=== PATIENT | female | born 1975 | race Caucasian/White ===

== ENCOUNTER 2016-06-27 13:43 | Emergency (ER) | payer BC ==
[2016-06-27 15:14] VITALS: BP 122/62
[2016-06-27] MEDS ORDERED: Ibuprofen TAB* 600 MG PO ONE (15:39)
--- NOTE | 2016-06-27 15:39 | UC ---
UC General HPI - HPI Summary HPI Summary: Patient slipped on stone steps, landed on bottom, heard a crunch, pain with ambulation and sitting. small amount of swelling around the cleft noted. - History of Current Complaint Chief Complaint: UCBackPain Stated Complaint: BACK AND BOTTOM INJURY Time Seen by Provider: 06/27/16 15:20 Hx Obtained From: Patient Onset/Duration: Sudden Onset, Lasting Hours Timing: Constant Onset Severity: Severe Current Severity: Moderate Pain Intensity: 6 Pain Location at: buttocks - Allergy/Home Medications Allergies/Adverse Reactions: Allergies Allergy/AdvReac Type Severity Reaction Status Date / Time No Known Allergies Allergy Verified 03/10/16 17:03 Home Medications: Home Medications NK [No Home Medications Reported] 06/27/16 [History Confirmed 06/27/16] PMH/Surg Hx/FS Hx/Imm Hx Previously Healthy: Yes Endocrine History Of: Denies: Diabetes, Thyroid Disease Cardiovascular History Of: Reports: Cardiac Disorders - SVT, Hypertension - while Respiratory History Of: Reports: Asthma - as pre-teen Denies: COPD GI/ History Of: Denies: Ulcer Cancer History Of: Denies: Breast Cancer - Surgical History Surgical History: Yes Surgery Procedure, Year, and Place: X2. TUBAL LIGATION - Family History Known Family History: Positive: Hypertension, Respiratory Disease - Social History Alcohol Use: Occasionally Alcohol Amount: 3 DRINKS/DAY Substance Use Type: None Smoking Status (MU): Light Every Day Tobacco Smoker Have You Smoked in the Last Year: No When Did the Patient Quit Smoking/Using Tobacco: 2007 - Immunization History Most Recent Influenza Vaccination: 2014 Most Recent Tetanus Shot: UTD Review of Systems Constitutional: Negative Skin: Negative Eyes: Negative ENT: Negative Respiratory: Negative Cardiovascular: Negative Gastrointestinal: Negative Genitourinary: Negative Motor: Negative Neurovascular: Negative Musculoskeletal: Arthralgia, Edema, Myalgia Neurological: Negative Psychological: Negative All Other Systems Reviewed And Are Negative: Yes Physical Exam Triage Information Reviewed: Yes Appearance: Well-Appearing, Well-Nourished, Pain Distress Vital Signs: Initial Vital Signs Temp 98.1 F 06/27/16 15:11 Pulse 57 06/27/16 15:11 Resp 18 06/27/16 15:11 BP 122/62 06/27/16 15:11 Pulse Ox 100 06/27/16 15:11 Vital Signs Reviewed: Yes Eye Exam: Normal Eyes: Positive: Conjunctiva Clear ENT Exam: Normal ENT: Positive: Normal ENT inspection, Hearing grossly normal, Pharynx normal, TMs normal Dental Exam: Normal Neck exam: Normal Neck: Positive: Supple, Nontender, No Lymphadenopathy Respiratory Exam: Normal Respiratory: Positive: Chest non-tender, Lungs clear, Normal breath sounds Cardiovascular Exam: Normal Cardiovascular: Positive: RRR, No Murmur, Pulses Normal Abdominal Exam: Normal Abdomen Description: Positive: Nontender, No Organomegaly, Soft Bowel Sounds: Positive: Present Musculoskeletal Exam: Normal Musculoskeletal: Positive: ROM Limited @ - in hip flexion and back flexion, Edema @ - mild edema at minda cleft Neurological Exam: Normal Neurological: Positive: Alert, Muscle Tone Normal Psychological Exam: Normal Skin Exam: Normal Course/Dx - Course Course Of Treatment: hx obtained, exam performed, ibuprofen given, xray obtained - Differential Dx - Multi-Symptom Provider Diagnoses: contusion of sacrum Discharge - Discharge Plan Condition: Stable Disposition: HOME Patient Education Materials: Contusion in Adults (ED) Additional Instructions: NO evidence of fracture on xray today, if symptoms persist, i recommend follow up. continue with ice, Motrin as needed.
--- NOTE | 2016-06-27 15:54 | RAD ---
INDICATION: Sacrococcygeal injury. COMPARISON: There are no prior studies available for comparison. TECHNIQUE: 3 views of the sacrococcygeal spine were obtained. FINDINGS: The vertebra are in normal alignment. No fracture is seen. IMPRESSION: NO EVIDENCE OF FRACTURE IF THE PATIENT'S SYMPTOMS PERSIST RECOMMEND FOLLOW UP IMAGING.
== END 2016-06-27 16:43 | disposition home or self-care (01) ==
LOC: UCEAST 13:43
DX: S30.0XXA Contusion of lower back and pelvis, initial encounter (principal); W01.0XXA Fall on same level from slipping, tripping and stumbling without subsequent striking against object, initial encounter; Y93.9 Activity, unspecified; Y92.9 Unspecified place or not applicable; F17.210 Nicotine dependence, cigarettes, uncomplicated
CPT/HCPCS: 72220; 99211; A9270-GY; G0463

== ENCOUNTER 2016-10-01 12:17 | Emergency (ER) | payer BC ==
[2016-10-01 12:59] VITALS: BP 133/61
--- NOTE | 2016-10-01 13:58 | UC ---
Michelle Sarmiento Matthew, [facility] on 10/01/16 at 1316 . Throat Pain/Nasal Wood HPI - HPI Summary HPI Summary: A 41 y/o female presents to with sore throat since yesterday, which worsened today. Associated symptoms include headache - since 3 days ago, chills, body aches, hoarse voice, productive cough, and fever. The patient denies congestion , nausea, vomiting, diarrhea, and ear ache. She also states that she's had tonsil stones over the past week and mild nausea 3 days ago, which has resolved. She has a Hx of SVT, but hasn't had an episode in 3 years. FHx of CAD , ID, and fibromyalgia. She has positive fibromyalgia markers. MD Note: 12/28 sore throat. Smokes. 3 drinks per day, SVT. Visit Hx non- contributory to current complaint. Nurse's Note: headache sore throat started sunday - History of Current Complaint Chief Complaint: UCGeneralIllness Stated Complaint: SORE THROAT COUGH Time Seen by Provider: 10/01/16 13:01 Hx Obtained From: Patient Hx Last Menstrual Period: 09/18/16 ?: No Onset/Duration: Gradual Onset, Lasting Days, Still Present Severity: Mild Pain Intensity: 8 Pain Scale Used: 0-10 Numeric Cough: Productive Associated Signs & Symptoms: Positive: Hoarseness, Sinus Discomfort, Fever. Negative: Vomiting - Allergies/Home Medications Allergies/Adverse Reactions: Allergies Allergy/AdvReac Type Severity Reaction Status Date / Time No Known Allergies Allergy Verified 03/10/16 17:03 PMH/Surg Hx/FS Hx/Imm Hx Endocrine History Of: Denies: Diabetes, Thyroid Disease Cardiovascular History Of: Reports: Cardiac Disorders - SVT, Hypertension - while Respiratory History Of: Reports: Asthma - as pre-teen Denies: COPD GI/ History Of: Denies: Ulcer Cancer History Of: Denies: Breast Cancer - Surgical History Surgical History: Yes Surgery Procedure, Year, and Place: X2. TUBAL LIGATION - Family History Known Family History: Positive: Hypertension, Respiratory Disease - Social History Occupation: Employed Full-time - nurse Alcohol Use: Occasionally Alcohol Amount: 3 DRINKS/DAY Substance Use Type: None Smoking Status (MU): Light Every Day Tobacco Smoker Have You Smoked in the Last Year: No When Did the Patient Quit Smoking/Using Tobacco: 2007 - Immunization History Most Recent Influenza Vaccination: 2014 Most Recent Tetanus Shot: UTD Review of Systems Constitutional: Fever, Chills Skin: Negative Eyes: Negative ENT: Sore Throat, Other - hoarse voice; sinus discomfort Respiratory: Cough - productive Cardiovascular: Negative Gastrointestinal: Negative, Other - nausea - since resolved Genitourinary: Negative Motor: Negative Neurovascular: Negative Musculoskeletal: Myalgia - body aches Neurological: Headache Psychological: Negative All Other Systems Reviewed And Are Negative: Yes Physical Exam Triage Information Reviewed: Yes Appearance: No Pain Distress, Well-Nourished Vital Signs: Initial Vital Signs Temp 98 F 10/01/16 12:54 Pulse 69 10/01/16 12:54 Resp 16 10/01/16 12:54 BP 133/61 10/01/16 12:54 Pulse Ox 100 10/01/16 12:54 Vital Signs Reviewed: Yes Eyes: Positive: Conjunctiva Clear ENT: Positive: TMs normal, Other: - MILD DISCOMFORT ON EXAMINATION OF THE ANTERIOR CERVICAL GLANDS; PHARYNX SHOWS POSTERIOR LYMPH PATCHES; no purulence or enlargement of the tonsils noted; LEFT MAXILLARY SINUS DISCOMFORT ON PALPATION Neck: Positive: Supple, Nontender Respiratory: Positive: Chest non-tender, Lungs clear, Normal breath sounds Cardiovascular: Positive: RRR, No Murmur Abdomen Description: Positive: Nontender, No Organomegaly, Soft Bowel Sounds: Positive: Present Musculoskeletal: Positive: Strength Intact - RAMOS Neurological: Positive: Alert Psychological: Positive: Age Appropriate Behavior Skin Exam: Normal Throat Pain/Nasal Course/Dx - Course Assessment/Plan: Patient with a sore throat and sinus discomfort. Her rapid strep is negative and her influenza is negative. It is most likely she has a viral sinus infection with congestion. We discussed the situation and decided not to start Abx at this time and treat her symptomatically. DOCUMENTATION NOTE : Medications have been included in the original chart and reviewed. Patient is Urgent/Emergent. BP elevated due to current condition w/o HTN in PMH. - Differential Dx/Diagnosis Differential Diagnosis/HQI/PQRI: Influenza, Peritonsillar Abscess, Pharyngitis, URI, Other - STREP Provider Diagnoses: URI Discharge - Discharge Plan Condition: Stable Disposition: HOME Patient Education Materials: Pharyngitis (ED) Referrals: Alvin,Huong, MYCOLOGY TEACHER [Primary Care Provider] - Additional Instructions: WE DISCUSSED: 1. Your rapid strep was negative. 2. You have sinus congestion on the left. 3. Your influenza was negative. Most likely you have a viral illness. Other information: COUGH, CONGESTION of CHEST, SINUSES OR EARS: The most important goal is to liquefy all the phlegm and get it out of your head and chest. Any illness causing cough, congestion, sore throat or sinus discomfort can be helped by doing the following: STAND UNDER SHOWER STREAM TO LOOSEN SECRETIONS. STAY AWAY FROM ANY SMOKE OR IRRITANTS. WHAT ELSE CAN HELP RELIEVE YOUR SYMPTOMS: GENERAL TYPES OF MEDICINE THAT MAY HELP DECONGESTANTS: helps relieve stuffiness and clears sinuses. Pseudoephedrine ( Sudafed or generic) is effective but you need to ask the pharmacist for it because it may be kept behind the counter. ANTIHISTAMINES: are NOT helpful in many colds and flus because they can worsen sore throat, dry eyes and mouth and cause drowsiness. Examples are diphenhydramine, doxylamine and chlorpheniramine. They can help dry you out if you are having profuse, clear drainage from the nose. EXPECTORANTS: helps thin mucous in the nose and chest, making it easier to clear the fluid out. Expectorants are in most combination cough/cold remedies and should be taken with plenty of water. Guaifenesin is the most common expectorant and it comes in pill or liquid form. Mucinex is an extended release form of guaifenesin. COUGH SUPPRESANT: reduces the body's cough reflex. Dextromethorphan is in over the counter products, but sometimes narcotics such as codeine or hydrocodone are used to suppress cough. SPECIFIC MEDICATIONS: The most important goal is to liquefy all the phlegm and get it out of your head and chest: The following medicines (in prescription form or you can buy them without prescription) may help: To help with cough: DEXTROMETHORPHAN (Vicks, Robitussin, Nyquil and other brands) To help break up phlegm: GUAIFENESIN (Mucinex, Robitussin, other brands) To help clear congestion: PSEUDOEPHEDRINE (Sudafed, Dimetapp, other brands) TRY TO CLEAR NOSE: AFRIN NASAL SPRAY: 2-3 SPRAYS PER NOSTRIL, TWICE A DAY FOR TWO DAYS ONLY. USEFUL WAYS TO FEEL BETTER WITHOUT MEDICATIONS: STAND UNDER SHOWER STREAM TO LOOSEN SECRETIONS. USE A VAPORIZOR. STAY AWAY FROM ANY SMOKE OR IRRITANTS. USE SALINE NASAL SPRAY TO KEEP FLOW OF MUCOUS FROM NOSTRILS AND SINUSES. CONSIDER USING NETI POT TO HELP WITH ALLERGIES AND CONGESTION IN THE NOSE. USE THIS THREE TIMES A WEEK. YOU CAN GET THIS AT [employer] IN [place] OR VARIOUS DRUGSTORES. DRINK LOTS OF WARM FLUIDS USEFUL HOME REMEDIES: WARM WATER GARGLES, WITH TSP OF SALT PER 8 OUNCES OF WATER, GARGLE FOR A FEW SECONDS AND SPIT OUT; GARGLE AND SPIT OUT; EVERY THREE HOURS. AND/OR: WARM WATER OR TEA, HONEY AND LEMON; 2-3 CUPS A DAY. FOR SORE THROAT: KEEP THROAT MOIST WITH LOZENGES; TEA AND HONEY. USE WARM WATER GARGLES 3-4 TIMES A DAY. FOLLOW UP: RE-CHECK IN 1O DAYS, NEEDED, IF YOU ARE NOT IMPROVING. RETURN HERE OR SEE YOUR PHYSICIAN. RE-CHECK SOONER IF INCREASED PAIN OR TEMPERATURE. The documentation as recorded by the Michelle fabian Matthew accurately reflects the service I personally performed and the decisions made by , Saran Louie MD.
== END 2016-10-01 14:02 | disposition home or self-care (01) ==
LOC: UCEAST 12:17
DX: J06.9 Acute upper respiratory infection, unspecified (principal); F17.210 Nicotine dependence, cigarettes, uncomplicated; Z86.79 Personal history of other diseases of the circulatory system; Z72.89 Other problems related to lifestyle
CPT/HCPCS: 36415; 87389; 87502; 87651; 99211; G0463; G0475

== ENCOUNTER 2017-11-30 14:13 | Emergency (ER) | payer BC ==
[2017-11-30 14:34] VITALS: BP 143/75
[2017-11-30] MEDS ORDERED: Tetan/Diph/Pertus SYR(Tdap)* 0.5 ML SYR(BOOSTRIX) use SYR IM ONE (14:34)
--- NOTE | 2017-11-30 14:39 | UC ---
HPI Wound/Suture Re-check - HPI Summary HPI Summary: This pt is a 42 y/o female presenting to [facility] c/o wound on left ankle for the past 5 days. Pt reports [place] she [place] a wound on her left ankle. She presents today with worsening wound on her left ankle. She denies any other injuries. Denies fever, chills, discharge. Her tetanus vaccine is not UTD. - History Of Current Complaint Stated Complaint: WOUND ON ANKLE Time Seen by Provider: 11/30/17 14:25 Hx Obtained From: Patient Hx Last Menstrual Period: 11/19/17 Onset/Duration: Gradual Onset, Lasting Days, Still Present Severity: Moderate Pain Intensity: 5 - left ankle Pain Scale Used: 0-10 Numeric - Allergies/Home Medications Allergies/Adverse Reactions: Allergies Allergy/AdvReac Type Severity Reaction Status Date / Time No Known Allergies Allergy Verified 11/30/17 14:35 PMH/Surg Hx/FS Hx/Imm Hx Other Endocrine History: DENIES: diabetes Cardiovascular History: Hypertension Respiratory History: Asthma - Surgical History Surgical History: Yes Surgery Procedure, Year, and Place: X2. TUBAL LIGATION - Family History Known Family History: Positive: Hypertension, Respiratory Disease - Social History Alcohol Use: Occasionally Alcohol Amount: 3 DRINKS/DAY Substance Use Type: None Smoking Status (MU): Light Every Day Tobacco Smoker Have You Smoked in the Last Year: No When Did the Patient Quit Smoking/Using Tobacco: 2007 - Immunization History Most Recent Influenza Vaccination: 2014 Most Recent Tetanus Shot: unknown Review of Systems Constitutional: Negative Skin: Other - wound on left ankle Eyes: Negative ENT: Negative Respiratory: Negative Cardiovascular: Negative Gastrointestinal: Negative Genitourinary: Negative Motor: Negative Neurovascular: Negative Musculoskeletal: Negative Neurological: Negative Psychological: Negative All Other Systems Reviewed And Are Negative: Yes Physical Exam - Summary Physical Exam Summary: VITAL SIGNS: Reviewed. GENERAL: Patient is a well-developed and nourished female who is lying comfortable in the stretcher. Patient is not in any acute respiratory distress. HEAD AND FACE: Normocephalic EYES: PERRLA, EOMI x 2. EARS: Hearing grossly intact. MOUTH: Oropharynx within normal limits. NECK: Supple, trachea is midline, no adenopathy, no JVD, no carotid bruit. CHEST: Symmetric, no tenderness at palpation LUNGS: Clear to auscultation bilaterally. No wheezing or crackles. CVS: Regular rate and rhythm, S1 and S2 present, no murmurs or gallops appreciated. ABDOMEN: Soft, non-tender. Bowel sounds are normal. No abdominal abnormal pulsations. EXTREMITIES: Full ROM in all major joints, no cyanosis or clubbing. LLE: wound on left anterior aspect of the ankle. NEURO: Alert and oriented x 3. No acute neurological deficits. Speech is normal and follows commands. SKIN: Dry and warm Triage Information Reviewed: Yes Vital Signs: Initial Vital Signs Temp 99.0 F 11/30/17 14:25 Pulse 75 11/30/17 14:25 Resp 16 11/30/17 14:25 BP 143/75 11/30/17 14:25 Pulse Ox 100 11/30/17 14:25 Vital Signs Reviewed: Yes Course/Dx - Course Course Of Treatment: pt is a 42 y/o female presenting to [facility] c/o wound on left ankle for the past 5 days. Pt reports [place] she [place] a wound on her left ankle. She presents today with worsening wound on her left ankle. She denies any other injuries. Denies fever, chills, discharge. Her tetanus vaccine is not UTD. On exam pt has a wound on left anterior aspect of the ankle. In the UC course pt was given a tetanus boostrix. Pt will be discharged home with a prescription for Keflex for her wound infection. Pt was instructed to return to the urgent care or go to ER immediately if any of the symptoms return or worsens. Plan of care was discussed with the patient and pt understands and agrees. All questions were answered to patient satisfaction. There were no further complaints or concerns. Pt will be discharged to home with follow up from PCP. Pt is hemodynamically stable, alert and oriented x3. The patient was found to have increased blood pressure in UC. The patient will follow up with PCP for better control of BP. - Differential Dx - Laceration/Wound Provider Diagnoses: Wound infection Discharge - Sign-Out/Discharge Documenting (check all that apply): Patient Departure - Discharge - Discharge Plan Condition: Stable Disposition: HOME Prescriptions: Cephalexin CAP* [Keflex CAP*] 500 mg PO TID #30 cap Patient Education Materials: Wound Infection (ED) Referrals: Huong Esquivel NP [Primary Care Provider] - Additional Instructions: FOLLOW UP WITH YOUR PRIMARY CARE PROVIDER WITHIN ONE WEEK FOR HIGH BLOOD PRESSURE NOTED TODAY. RETURN TO URGENT CARE OR THE ED FOR ANY WORSENING OR NEW SYMPTOMS.
== END 2017-11-30 14:44 | disposition home or self-care (01) ==
LOC: UCEAST 14:13
DX: S91.002A Unspecified open wound, left ankle, initial encounter (principal); X58.XXXA Exposure to other specified factors, initial encounter; Y93.01 Activity, walking, marching and hiking; Y92.009 Unspecified place in unspecified non-institutional (private) residence as the place of occurrence of the external cause; Z23 Encounter for immunization; I10 Essential (primary) hypertension; J45.909 Unspecified asthma, uncomplicated; Z82.49 Family history of ischemic heart disease and other diseases of the circulatory system; Z83.6 Family history of other diseases of the respiratory system; Z87.891 Personal history of nicotine dependence
CPT/HCPCS: 90471; 90715; 99212; G0463

== ENCOUNTER 2018-02-08 17:21 | Emergency (ER) | payer BC ==
[2018-02-08 17:35] VITALS: BP 156/74
--- NOTE | 2018-02-08 17:54 | UC ---
Eye Complaint HPI - HPI Summary HPI Summary: This patient is a 42 year old F presenting to [facility] with a chief complaint of R corner eyelid pain and irritation since last couple of days. The patient rates the pain 8/10 in severity. Symptoms aggravated by nothing. Symptoms alleviated by nothing. Patient reports increased lacrimation. Patient denies fever and blurred vision. - History of Current Complaint Chief Complaint: UCEye Stated Complaint: EYE IRRITATION Hx Obtained From: Patient Hx Last Menstrual Period: 02/05/18 Onset/Duration: Sudden Onset, Lasting Days, Still Present Timing: Days Severity Initially: Severe Severity Currently: Severe Pain Intensity: 8 Pain Scale Used: 0-10 Numeric Location of Injury: Other - R corner eyelid Aggravating Factor(s): Nothing Alleviating Factor(s): Nothing - Allergies/Home Medications Allergies/Adverse Reactions: Allergies Allergy/AdvReac Type Severity Reaction Status Date / Time No Known Allergies Allergy Verified 02/08/18 17:35 PMH/Surg Hx/FS Hx/Imm Hx Endocrine History: Other Other Endocrine History: No DM Cardiovascular History: Cardiac Disease, Hypertension - Surgical History Surgical History: Yes Surgery Procedure, Year, and Place: X2. TUBAL LIGATION - Family History Known Family History: Positive: Hypertension, Respiratory Disease - Social History Alcohol Use: Occasionally Alcohol Amount: 3 DRINKS/DAY Substance Use Type: None Smoking Status (MU): Light Every Day Tobacco Smoker Have You Smoked in the Last Year: No When Did the Patient Quit Smoking/Using Tobacco: 2007 - Immunization History Most Recent Influenza Vaccination: 2015 Most Recent Tetanus Shot: unknown Review of Systems Constitutional: Other - denies fever Eyes: Other - R corner eyelid pain and irritation and increased lacrimation; denies blurred vision All Other Systems Reviewed And Are Negative: Yes Physical Exam - Summary Physical Exam Summary: VITAL SIGNS: Reviewed. GENERAL: Patient is a well-developed and nourished FEMALE who is lying comfortable in the stretcher. Patient is not in any acute respiratory distress. HEAD AND FACE: Normocephalic EYES: PERRLA, EOMI x 2. Stye in the R lower eyelid. EARS: Hearing grossly intact. MOUTH: Oropharynx within normal limits. NECK: Supple, trachea is midline, no adenopathy, no JVD, no carotid bruit. CHEST: Symmetric, no tenderness at palpation LUNGS: Clear to auscultation bilaterally. No wheezing or crackles. CVS: Regular rate and rhythm, S1 and S2 present, no murmurs or gallops appreciated. ABDOMEN: Soft, non-tender. Bowel sounds are normal. No abdominal abnormal pulsations. EXTREMITIES: Full ROM in all major joints, no edema, no cyanosis or clubbing. NEURO: Alert and oriented x 3. No acute neurological deficits. Speech is normal and follows commands. SKIN: Dry and warm Triage Information Reviewed: Yes Vital Signs: Initial Vital Signs Temp 98.2 F 02/08/18 17:28 Pulse 65 02/08/18 17:28 Resp 18 02/08/18 17:28 BP 156/74 02/08/18 17:28 Pulse Ox 100 02/08/18 17:28 Vital Signs Reviewed: Yes Eye Complaint Course/Dx - Course Course Of Treatment: Believe that the patient has a stye. Therefore she was recommended to use warm compresses and use erythromycin ointment. The patient understands and agrees. The patient will be discharged home with follow-up with primary care physician. She was recommended to return to the urgent care or go to the emergency room if she develops increasing pain, blurred vision, photophobia, any ulcers in the eye or any other complaint. He shouldn't is hemodynamically stable alert and oriented 3. - Differential Dx/Diagnosis Differential Diagnosis/HQI/PQRI: Other - stye Provider Diagnoses: stye Discharge - Sign-Out/Discharge Documenting (check all that apply): Patient Departure - discharge All imaging exams completed and their final reports reviewed: No Studies - Discharge Plan Condition: Stable Disposition: HOME Prescriptions: Erythromycin OPTH OINT* [Erythromycin 0.5% OPTH OINT*] 1 applic BOTH EYES TID # 1 tube Patient Education Materials: Stye (ED) Referrals: Huong Esquivel NP [Primary Care Provider] - Additional Instructions: Take medications as instructed and adhere to plan Take Acetaminophen or ibuprofen for pain or fever Increase your fluid intake Return to the or go to the emergency department if symptoms worsen Follow-up with primary care physician in next 2-3 days - Billing Disposition and Condition Condition: STABLE Disposition: Home - Attestation Statements Document Initiated by Scribe: Yes Documenting Scribe: David Corrigan Provider For Whom Scribe is Documenting (Include Credential): Fransisco Nelson MD Scribe Attestation: David Sarmiento, scribed for Fransisco Nelson MD on 02/08/18 at 1755. Scribe Documentation Reviewed: Yes Provider Attestation: The documentation as recorded by the scribe, David Corrigan accurately reflects the service I personally performed and the decisions made by me, Fransisco Nelson MD
== END 2018-02-08 17:55 | disposition home or self-care (01) ==
LOC: UCEAST 17:21
DX: H00.022 Hordeolum internum right lower eyelid (principal); I10 Essential (primary) hypertension; Z87.891 Personal history of nicotine dependence
CPT/HCPCS: 99212; G0463

== ENCOUNTER → 2018-11-09 11:33 | Emergency (ER) | payer BC ==
--- NOTE | 2018-11-09 11:59 | ED ---
Lower Extremity - HPI Summary HPI Summary: This patient is a 43 year old female presenting to [facility] with a chief complaint of RLE pain yesterday. Pt states she started experiencing a "deep" pain in her right thigh and some weakness after that. She said she experienced 10/10 pain for 2-3 minutes and then it resolved. Pt states pain feels like a deep bruise. She states she buckled her right knee a couple weeks ago and has pain there. She states she has some trouble walking up and down stairs but otherwise can ambulate. The patient denies back pain, numbness, and tingling. The patient reports a Hx of SVT. Sxs are mild in severity. - History of Current Complaint Chief Complaint: EDExtremityLower Stated Complaint: RIGHT LEG PAIN UPPER THIGH PER PT Time Seen by Provider: 11/09/18 11:47 Hx Obtained From: Patient Hx Last Menstrual Period: 02/05/18 Pain Intensity: 0 - Allergies/Home Medications Allergies/Adverse Reactions: Allergies Allergy/AdvReac Type Severity Reaction Status Date / Time morphine Allergy See Comment Verified 11/09/18 11:40 Home Medications: Home Medications Biotin/Keratin [Biotin Plus Keratin Tablet] 1 tab PO DAILY 11/09/18 [History Confirmed 11/09/18] PMH/Surg Hx/FS Hx/Imm Hx Previously Healthy: Yes Endocrine/Hematology History: Denies: Hx Diabetes, Hx Thyroid Disease Cardiovascular History: Reports: Hx Hypertension - while Comment Only: Other Cardiovascular Problems/Disorders - SVT Respiratory History: Reports: Hx Asthma - as pre-teen Denies: Hx Chronic Obstructive Pulmonary Disease (COPD) GI History: Denies: Hx Ulcer - Cancer History Hx Chemotherapy: No Hx Radiation Therapy: No - Surgical History Surgery Procedure, Year, and Place: X2. TUBAL LIGATION - Immunization History Date of Tetanus Vaccine: 2011 Date of Influenza Vaccine: fall 2012 Infectious Disease History: No Infectious Disease History: Denies: Hx Clostridium Difficile, Hx Hepatitis, Hx Human Immunodeficiency Virus (HIV), Hx of Known/Suspected MRSA, Hx Shingles, Hx Tuberculosis, Hx Known/ Suspected VRE, Hx Known/Suspected VRSA, History Other Infectious Disease, Traveled Outside the [place] in Last 30 Days - Family History Known Family History: Positive: Hypertension, Respiratory Disease - Social History Occupation: Employed Full-time Lives: With Family Alcohol Use: Occasionally Alcohol Amount: 3 DRINKS/DAY Substance Use Type: Reports: None Hx Tobacco Use: Yes Smoking Status (MU): Light Every Day Tobacco Smoker Have You Smoked in the Last Year: No Review of Systems Cardiovascular: Negative Negative: Chest Pain Respiratory: Negative Negative: Shortness Of Breath Positive: Other - RLE Pain, back pain Positive: Weakness - In RLE. Negative: Numbness, Syncope All Other Systems Reviewed And Are Negative: Yes Physical Exam Triage Information Reviewed: Yes Vital Signs On Initial Exam: Initial Vitals Temp Pulse Resp BP Pulse Ox 97.8 F 77 16 125/94 100 11/09/18 11:36 11/09/18 11:36 11/09/18 11:36 11/09/18 11:36 11/09/18 11:36 Vital Signs Reviewed: Yes Appearance: Positive: Well-Appearing - Patient is a pleasant 43 year old female in no pain distress. Skin: Positive: Warm, Dry Head/Face: Positive: Normal Head/Face Inspection Neck: Positive: Supple Musculoskeletal: Positive: Other - Palpable pedal pulse right. No calf edema or tenderness. Echymosis, superficial, abraision, and tenderness over right patella. Full ROM with minimal pain. No increase in laxity. Mild proximal right thigh tenderness. Neurological: Positive: Normal Psychiatric: Positive: Affect/Mood Appropriate Diagnostics - Vital Signs Vital Signs Temp Pulse Resp BP Pulse Ox 11/09/18 11:36 97.8 F 77 16 125/94 100 - Laboratory Lab Statement: Any lab studies that have been ordered have been reviewed, and results considered in the medical decision making process. - Radiology Right Knee XR Radiology Interpretation Completed By: Radiologist Summary of Radiographic Findings: Negative for joint effusion, fracture, or malalignment. Anterior soft tissue swelling. ED Provider has reviewed this report. - Ultrasound No standard instances Ultrasound Interpretation Completed By: Radiologist Summary of Ultrasound Findings: Venous Doppler Study: No evidence for Right Lower Extremity DVT. ED provider has reviewed this report. Lower Extremity Course/Dx - Diagnoses Differential Diagnosis/HQI/PQRI: Positive: Contusion, DVT, Sprain, Strain Provider Diagnoses: Leg strain, Knee sprain Discharge - Sign-Out/Discharge Documenting (check all that apply): Patient Departure Patient Received Moderate/Deep Sedation with Procedure: No - Discharge Plan Condition: Good Disposition: HOME Patient Education Materials: Knee Sprain (ED), Leg Sprain (ED) Referrals: Nils Arrington DO [Primary Care Provider] - Additional Instructions: Follow up with PCP if symptoms persist Ice and elevate intermittently Tylenol or Motrin for pain as directed Return to ER if symptoms change or worsen - Billing Disposition and Condition Condition: GOOD Disposition: Home - Attestation Statements Document Initiated by Scribe: Yes Documenting Scribe: Joesph Doll Provider For Whom Scribe is Documenting (Include Credential): GRACIE Peraza Scribe Attestation: IJoesph scribed for GRACIE Peraza on 11/10/18 at 1733. Scribe Documentation Reviewed: Yes Provider Attestation: The documentation as recorded by the Joesph fabian accurately reflects the service I personally performed and the decisions made by Ziyad espitia PAC Status of Scribe Document: Viewed
[2018-11-09 15:16] VITALS: BP 0/0
== END | disposition home or self-care (01) ==
LOC: ED 11:33
DX: S86.911A Strain of unspecified muscle(s) and tendon(s) at lower leg level, right leg, initial encounter (principal); S83.91XA Sprain of unspecified site of right knee, initial encounter; F17.210 Nicotine dependence, cigarettes, uncomplicated; X58.XXXA Exposure to other specified factors, initial encounter
CPT/HCPCS: 36415; 85379; 99282

== ENCOUNTER 2019-05-15 13:02 | Emergency (ER) | payer BC ==
--- OUTSIDE RECORDS SUMMARY | 2019-05-15 13:17 | XMS REPORT | Continuity of Care Document ---
:1975 External Reference #:[id number] Author Name Annaaleksandar Vanessa MANAGER SOCIAL-Cde (transmitted by agent of provider Lala Cárdenas) Address [address] [place] [address] Care Team Providers Name Role Phone Nils Arrington D.O. - Family Medicine Care Team Information Quality Audit Representative Problems Active Problems Provider Date Paroxysmal supraventricular tachycardia Bandar Hendrickson M.D. Onset: 2015 Social History Type Date Description Comments Sex Unknown Tobacco Use Start: Unknown current cigarette smoker 1/3 ppd ETOH Use Rarely consumes alcohol Recreational Drug Use Denies Drug Use Tobacco Use Start: Unknown Patient is a current smoker, smokes every day Smoking Status Reviewed: 04/10/19 Patient is a current smoker, smokes every day Exercise Type/Frequency Exercises regularly walking Allergies, Adverse Reactions, Alerts Description No Known Drug Allergies Medications Active Medications SIG Qnty Indications Ordering Provider Date Ibuprofen 3-4 tablet po as Unknown 200mg needed Aris's Wort 2-3 times per day Unknown 300MG-600MG Iron 1 by mouth every Unknown 325(65Fe) mg Tablets day Biotin Plus Keratin one tablet every Unknown other day [id number] Tablets Vitamin C ER 1 by mouth every Unknown 500mg day Capsules ER History Medications Prometrium one tablet by 30caps N92.1 Lilia Queen MD 11/22/2018 - 100mg mouth qHS 12/02/2018 Capsules Immunizations Description No Information Available Vital Signs Date Vital Result Comment 04/10/2019 11:40am Height 64 inches 5'4" Weight 180.00 lb Heart Rate 68 /min BP Systolic 126 mmHg BP Diastolic 78 mmHg O2 % BldC Oximetry 100 % BMI (Body Mass Index) 30.9 kg/m2 Last Menstrual Period [id number] 12/03/2018 2:00pm Height 64 inches 5'4" Weight 174.00 lb Heart Rate 71 /min BP Systolic Sitting 127 mmHg Lue BP Diastolic Sitting 75 mmHg Lue Respiratory Rate 14 /min O2 % BldC Oximetry 99 % room air BMI (Body Mass Index) 29.9 kg/m2 Results Test Acquired Date Facility Test Result H/L Range Note Laboratory test 11/22/2018 [facility] Surgical SEE RESULT [address] Pathology BELOW [place], [place] [id number] [phone] 1 SEE RESULT BELOW Name: ALVIN JACKSON : [address]: Lilia Queen MD Acct: [id number] Unit: [id number] AGE: 43 Location: [facility] Re11/22/18 SEX: F Status: REG REF SPEC: [id number] DIMAS: 11/22/18-[address]: Lilia Queen MD REQ: [id number] RECD: 11/22/185048 STATUS: SOUT _ ORDERED: LEVEL 4 COMMENTS: [id number] FINAL DIAGNOSIS Uterus, endometrium, curettage: -- Mid-secretory endometrium with glandular and stromal breakdown. -- No evidence of hyperplasia or neoplasia identified. PRE-OPERATIVE DIAGNOSIS Irregular, heavy menses GROSS DESCRIPTION The specimen is received in formalin with no source identified and a requisition labeled, Endometrial Biopsy, and consists of a 1.9 x 1.7 x 0.5 cm aggregate of brown irregular to cylindrical soft tissue fragments admixed with blood-tinged mucus and red- brown blood clot. The specimen is filtered and submitted entirely in one cassette. Signed by and Reported on: Shady Stevenson MD 02/06 1226 END OF REPORT DEPARTMENT OF PATHOLOGY, [address] [place] [address] Shady Stevenson M.D. Director [facility] # [id number] Procedures Date Code Description Status 11/22/2018 [id number] Endometrial Sampling W Or W/O Endocervical BX W Or W/O Completed Cerv Dilat 11/18/2018 [id number] Mammogram Completed 05/21/2012 [id number] Mammogram Completed Medical Devices Description No Information Available Encounters Type Date Location Provider Dx Diagnosis [facility] Family history of 2:00p [facility] malignant neoplasm of breast Z80.0 Family history of malignant neoplasm of digestive organs N92.1 Excessive and frequent menstruation with irregular cycle D64.9 Anemia, unspecified N83.202 Unspecified ovarian cyst, left side Office Visit 11/22/2018 2:00p [facility] Lilia Queen, N92.1 Excessive and [facility] frequent menstruation with irregular cycle N83.202 Unspecified ovarian cyst, left side Z80.3 Family history of malignant neoplasm of breast Assessments Date Code Description Provider 04/10/2019 N92.0 Excessive and frequent menstruation with YVETTE Fournier regular cycle 12/03/2018 Z80.3 Family history of malignant neoplasm of Lilia Queen MD breast 12/03/2018 Z80.0 Family history of malignant neoplasm of Lilia Queen MD digestive organs 12/03/2018 N92.1 Excessive and frequent menstruation with Lilia Queen MD irregular cycle 12/03/2018 D64.9 Anemia, unspecified Lilia Queen MD 12/03/2018 N83.202 Unspecified ovarian cyst, left side Lilia Queen MD 11/22/2018 N92.1 Excessive and frequent menstruation with Lilia Queen MD irregular cycle 11/22/2018 N83.202 Unspecified ovarian cyst, left side Lilia Queen MD 11/22/2018 Z80.3 Family history of malignant neoplasm of Lilia Queen MD breast Plan of Treatment Future Appointment(s):07/25/2019 4:00 pm - Lilia Queen MD at [facility]07/07/2019 11:00 am - Lilia Queen MD at [facility]07/18/2019 8:00 am - Lilia Queen MD at [facility]2018 - YVETTE Fournier-eN92.0 Excessive and frequent menstruation with regular cycleNew Xrays:US Transvaginal, Ordered: 04/10/19Follow up:Schedule for endometrial ablation with Dr Queen Functional Status Description No Information Available Mental Status Description No Information Available Referrals Refer to Reason for Referral Status Appt Date Josafat Smiley M.D. Referral to discuss strong family Hx breast Scheduled 12/23/2018 and colon cancer. Pt considering hysterectomy for heavy vaginal bleeding, would be helpful to know if genetic predisposition to uterine/ovarian cancer. Thank you [address] [place] [phone]
--- NOTE | 2019-05-15 13:25 | ED ---
Palpitations / Dysrhythmia - HPI Summary HPI Summary: The patient is a 43 y/o F arriving by ambulance to [facility] with a chief complaint of dysrhythmia onset this morning. She reports history of SVT, which EMS found she was in and administered 6mg and 12mg Adenosine, which helped her to convert to NSR. She is feeling well in the ED. She states that her last episode of SVT that needed manual conversion interventions was three years ago, but the most recent episode she had was about a month ago although she was able to convert to NSR on her own. She does not take any medications for this, as Dr. Hendrickson from cardiology had placed her on a beta elif but stopped the medication because she was continuing to have episodes. She denies any dizziness or chest pain. PMHx: hypokalemia, HTN, asthma, kidney stones. Light every day smoker, occasional EtOH, no substance use. Medications reviewed. Allergies noted. - History of Current Complaint Time Seen by Provider: 05/15/19 13:07 Hx Obtained From: Patient Onset/Duration: Lasting Minutes, Resolved Timing: Constant Severity Initially: Moderate Severity Currently: Mild Character: Irregular Aggravating: Nothing Alleviating: Nothing - Adenosine in ambulance Associated Signs & Symptoms: Negative - CP, dizziness - Allergy/Home Medications Allergies/Adverse Reactions: Allergies Allergy/AdvReac Type Severity Reaction Status Date / Time morphine Allergy See Comment Verified 11/09/18 11:40 Home Medications: Home Medications Ibuprofen TAB* [Motrin TAB* 600 MG] 600 mg PO Q6H PRN 05/15/19 [History Confirmed 05/15/19] PMH/Surg Hx/FS Hx/Imm Hx Endocrine/Hematology History: Denies: Hx Diabetes, Hx Thyroid Disease Cardiovascular History: Reports: Hx Hypertension - while , Other Cardiovascular Problems/Disorders - SVT Respiratory History: Reports: Hx Asthma - as pre-teen Denies: Hx Chronic Obstructive Pulmonary Disease (COPD) GI History: Denies: Hx Ulcer - Cancer History Hx Chemotherapy: No Hx Radiation Therapy: No - Surgical History Surgical History: Yes Surgery Procedure, Year, and Place: X2. TUBAL LIGATION - Immunization History Date of Tetanus Vaccine: 2011 Date of Influenza Vaccine: fall 2012 Infectious Disease History: No Infectious Disease History: Reports: Traveled Outside the [place] in Last 30 Days Denies: Hx Clostridium Difficile, Hx Hepatitis, Hx Human Immunodeficiency Virus (HIV), Hx of Known/Suspected MRSA, Hx Shingles, Hx Tuberculosis, Hx Known/ Suspected VRE, Hx Known/Suspected VRSA, History Other Infectious Disease - Family History Known Family History: Positive: Hypertension, Respiratory Disease - Social History Alcohol Use: Occasionally Alcohol Amount: 3 DRINKS/DAY Substance Use Type: Reports: None Hx Tobacco Use: Yes Smoking Status (MU): Light Every Day Tobacco Smoker Have You Smoked in the Last Year: No Review of Systems Positive: Palpitations. Negative: Chest Pain Neurological: Other - Negative: dizziness All Other Systems Reviewed And Are Negative: Yes Physical Exam - Summary Physical Exam Summary: Appearance: The patient is well-nourished in no acute distress and in no acute pain. Skin: The skin is warm and dry, and skin color reflects adequate perfusion. HEENT: The head is normocephalic and atraumatic. The pupils are equal and reactive. The conjunctivae are clear and without drainage. Nares are patent and without drainage. Mouth reveals moist mucous membranes, and the throat is without erythema and exudate. The external ears are intact. The ear canals are patent and without drainage. The tympanic membranes are intact. Neck: The neck is supple with full range of motion and non-tender. There are no carotid bruits. There is no neck vein distension. Respiratory: Chest is non-tender. Lungs are clear to auscultation and breath sounds are symmetrical and equal. Cardiovascular: Heart is regular rate and rhythm. There is no murmur or rub auscultated. There is no peripheral edema and pulses are symmetrical and equal. Abdomen: The abdomen is soft and non-tender. There are normal bowel sounds heard in all four quadrants and there is no organomegaly palpated. Musculoskeletal: There is no back tenderness noted. Extremities are non-tender with full range of motion. There is good capillary refill. There is no peripheral edema or calf tenderness elicited. Neurological: Patient is alert and oriented to person, place and time. The patient has symmetrical motor strength in all four extremities. Cranial nerves are grossly intact. Deep tendon reflexes are symmetrical and equal in all four extremities. Psychiatric: The patient has an appropriate affect and does not exhibit any anxiety or depression. Triage Information Reviewed: Yes Vital Signs On Initial Exam: Initial Vitals Temp Pulse Resp BP Pulse Ox 97.7 F 84 21 146/80 99 05/15/19 13:07 05/15/19 13:07 05/15/19 13:07 05/15/19 13:07 05/15/19 13:07 Vital Signs Reviewed: Yes Procedures - Sedation Patient Received Moderate/Deep Sedation with Procedure: No Diagnostics - Vital Signs Vital Signs Temp Pulse Resp BP Pulse Ox 05/15/19 13:07 97.7 F 84 21 146/80 99 - Laboratory Result Diagrams: 05/15/19 14:00 05/15/19 14:00 Lab Statement: Any lab studies that have been ordered have been reviewed, and results considered in the medical decision making process. - EKG 1337 Cardiac Rate: NL - 76 bpm EKG Rhythm: Sinus Rhythm Summary of EKG Findings: EKG at 1337 reveals normal sinus rhythm at 76 bpm. No STEMI. ED physician has reviewed and interpreted this EKG. Re-Evaluation - Re-Evaluation First Eval Re-Evaluation Time: 15:45 Comment: We discussed results and plan for discharge. Course/Dx - Course Course Of Treatment: Ms. Cohen has a history of SVT. She went into SVT today eminence converted her with Adenocard. Her potassium was slightly low at 3.8 here. She was supplemented. She remains stable on the monitor and I will have her follow up with her general labor. - Diagnoses Provider Diagnoses: SVT (supraventricular tachycardia) Discharge ED - Sign-Out/Discharge Documenting (check all that apply): Patient Departure - Patient will be discharged home. - Discharge Plan Condition: Stable Disposition: HOME Patient Education Materials: Supraventricular Tachycardia (ED) Referrals: Bandar Hendrickson MD [Medical Doctor] - 3 Days Nils Arrington DO [Primary Care Provider] - 3 Days Additional Instructions: Follow up with your primary care provider and general labor in 2-3 days. Return to the emergency department for any new or worsening symptoms. - Billing Disposition and Condition Condition: STABLE Disposition: Home - Attestation Statements Document Initiated by Scribe: Yes Documenting Scribe: Sera Vanegas Provider For Whom Alison is Documenting (Include Credential): Dr. Deejay Julien MD Scribe Attestation: Sera Sarmiento scribed for Dr. Deejay Julien MD on 05/15/19 at 2000. Scribe Documentation Reviewed: Yes Provider Attestation: The documentation as recorded by the scribe, Sera Vanegas accurately reflects the service I personally performed and the decisions made by me, Dr. Deejay Julien MD Status of Alison Document: Viewed
[2019-05-15 14:29] LABS: ABS Eosinophils 0.2 10^3/ul (0-0.6); ABS Monocytes 0.4 10^3/ul (0-0.8); ABS Neutrophils 5.3 10^3/ul (1.5-7.7); Eosinophil % 2.5 %; Hematocrit 40 % (35-47); Hemoglobin 14.1 g/dL (12.0-16.0); Lymphocyte % 14.9 %; Mean Corpuscular HGB Conc 35 g/dL (31-36); Mean Corpuscular Hemoglobin 32 pg (27-31); Mean Corpuscular Volume 90 fL (80-97); Mean Platelet Volume 9.6 fL (7.4-10.4); Nucleated Red Blood Cells % 0.1; Platelet Count 207 10^3/uL (150-450); Red Blood Count 4.42 10^6 /uL (3.70-4.87); Red Cell Distribution Width 13 % (10-15); White Blood Count 6.9 10^3/uL (3.5-10.8)
[2019-05-15 14:49] LABS: ALT 57 U/L (7-52); AST 36 U/L (13-39); Albumin 4.4 g/dL (3.2-5.2); Albumin/Globulin Ratio 1.3 (1-3); Alkaline Phosphatase 69 U/L (34-104); Anion Gap 6 mmol/L (2-11); BUN/Creatinine Ratio 20.9 (8-20); Blood Urea Nitrogen 14 mg/dL (6-24); CO2 Carbon Dioxide 28 mmol/L (22-32); Calcium 9.4 mg/dL (8.6-10.3); Chloride 107 mmol/L (101-111); EGFR African American 117.4 (>60); Globulin 3.3 g/dL (2-4); Glucose 99 mg/dL (70-100); Magnesium 2.1 mg/dL (1.9-2.7); Potassium 3.8 mmol/L (3.5-5.0); Sodium 141 mmol/L (135-145); Total Protein 7.7 g/dL (6.4-8.9)
[2019-05-15 14:50] LABS: Troponin I 0.06 ng/mL (<0.03)
[2019-05-15 14:55] LABS: TSH (Thyroid Stimulating Horm) 1.58 mcIU/mL (0.34-5.60)
[2019-05-15] MEDS: Potassium Chlor TAB* 20 MEQ TAB.ER PO ONE (15:54)
[2019-05-15 16:01] VITALS: BP 118/65
== END 2019-05-15 15:52 | disposition home or self-care (01) ==
LOC: ED 13:02
DX: I47.1 Supraventricular tachycardia (principal); F17.200 Nicotine dependence, unspecified, uncomplicated; Z98.51 Tubal ligation status; Z88.5 Allergy status to narcotic agent
CPT/HCPCS: 36415; 80053; 83605; 83735; 84443; 84484; 85025; 93005; 99283; A9270-GY

== ENCOUNTER 2019-07-01 19:41 | Emergency (ER) | payer BC ==
[2019-07-01] MEDS ORDERED: Adenosine* 3 MG/ML VIAL ONE ×2 (19:58→20:12)
[2019-07-01 20:06] LABS: ABS Basophils 0.1 10^3/ul (0-0.2); ABS Eosinophils 0.2 10^3/ul (0-0.6); ABS Monocytes 0.5 10^3/ul (0-0.8); ABS Neutrophils 3.9 10^3/ul (1.5-7.7); Eosinophil % 3.2 %; Hematocrit 42 % (35-47); Hemoglobin 14.6 g/dL (12.0-16.0); Lymphocyte % 30.2 %; Mean Corpuscular HGB Conc 35 g/dL (31-36); Mean Corpuscular Hemoglobin 31 pg (27-31); Mean Corpuscular Volume 89 fL (80-97); Nucleated Red Blood Cells % 0.1; Platelet Count 184 10^3/uL (150-450); Red Blood Count 4.73 10^6 /uL (3.70-4.87); Red Cell Distribution Width 13 % (10-15); White Blood Count 6.7 10^3/uL (3.5-10.8)
[2019-07-01] MEDS ORDERED: NS 0.9% 1000 ML** 1,000 ML IV.FLUID IV ONE (20:06)
[2019-07-01] MEDS: Adenosine* 3 MG/ML VIAL IV PUSH ONE ×2 (20:07→20:09)
[2019-07-01 20:23] LABS: ALT 20 U/L (7-52); AST 20 U/L (13-39); Albumin 4.9 g/dL (3.2-5.2); Albumin/Globulin Ratio 1.4 (1-3); Alkaline Phosphatase 72 U/L (34-104); Anion Gap 8 mmol/L (2-11); Blood Urea Nitrogen 15 mg/dL (6-24); CO2 Carbon Dioxide 26 mmol/L (22-32); Calcium 9.6 mg/dL (8.6-10.3); Chloride 103 mmol/L (101-111); Creatine Kinase 76 U/L (10-223); EGFR Non-African American 80.2 (>60); Globulin 3.5 g/dL (2-4); Glucose 136 mg/dL (70-100); Potassium 3.2 mmol/L (3.5-5.0); Sodium 137 mmol/L (135-145); Total Protein 8.4 g/dL (6.4-8.9)
[2019-07-01 20:28] LABS: CKMB ng/mL 1.2 ng/mL (0.6-6.3); HCG Pregnancy < 0.60 mIU/mL
--- NOTE | 2019-07-01 20:49 | ED ---
Complex/Multi-Sys Presentation - HPI Summary HPI Summary: 43 year old F presenting to [facility] with a Hx of SVT accompanied by female companions complains of palpitations. Patient reports tachycardia, dehydration, low potassium, SOB, and dizziness. Pt reports no current use of beta blockers. Pt was scheduled to get a uterine ablation but it has since been postponed for cardiac clearance. SHx of two C-sections. FHx of HTN, hypercholesterolemia, and diabetes. SocHx of smoking in the past. The patient rates the pain 0/10 in severity. Symptoms aggravated by nothing. Symptoms alleviated by nothing. - History Of Current Complaint Chief Complaint: EDChestPainROMI Time Seen by Provider: 07/01/19 19:50 Hx Obtained From: Patient Onset/Duration: Lasting Hours, Still Present Aggravating Factor(s): nothing Alleviating Factor(s): nothing Associated Signs And Symptoms: Positive: Dizziness, SOB, Palpitations, Other - tachycardia, dehydration, low potassium - Allergies/Home Medications Allergies/Adverse Reactions: Allergies Allergy/AdvReac Type Severity Reaction Status Date / Time morphine Allergy Severe See Comment Verified 07/01/19 20:05 PMH/Surg Hx/FS Hx/Imm Hx Endocrine/Hematology History: Denies: Hx Diabetes, Hx Thyroid Disease Cardiovascular History: Reports: Hx Hypertension - while , Other Cardiovascular Problems/Disorders - SVT Respiratory History: Reports: Hx Asthma - as pre-teen Denies: Hx Chronic Obstructive Pulmonary Disease (COPD) GI History: Denies: Hx Ulcer - Cancer History Hx Chemotherapy: No Hx Radiation Therapy: No - Surgical History Surgery Procedure, Year, and Place: X2. TUBAL LIGATION - Immunization History Date of Tetanus Vaccine: 2011 Date of Influenza Vaccine: fall 2012 Infectious Disease History: No Infectious Disease History: Denies: Hx Clostridium Difficile, Hx Hepatitis, Hx Human Immunodeficiency Virus (HIV), Hx of Known/Suspected MRSA, Hx Shingles, Hx Tuberculosis, Hx Known/ Suspected VRE, Hx Known/Suspected VRSA, History Other Infectious Disease, Traveled Outside the [place] in Last 30 Days - Family History Known Family History: Positive: Hypertension, Diabetes, Respiratory Disease, Other - Hypercholesterolemia - Social History Alcohol Use: Occasionally Alcohol Amount: 3 DRINKS/DAY Substance Use Type: Reports: None Hx Tobacco Use: Yes Smoking Status (MU): Light Every Day Tobacco Smoker Have You Smoked in the Last Year: No Review of Systems Constitutional: Other - dehydration, low potassium Positive: Palpitations, Other - tachycardia Positive: Shortness Of Breath Neurological/Mental Status: Other - Dizziness All Other Systems Reviewed And Are Negative: Yes Physical Exam - Summary Physical Exam Summary: VITAL SIGNS: Reviewed. GENERAL: Patient is a well-developed and nourished female who is lying comfortable in the stretcher. Patient is not in any acute respiratory distress. HEAD AND FACE: No signs of trauma. No ecchymosis, hematomas or skull depressions. No sinus tenderness. EYES: PERRLA, EOMI x 2, No injected conjunctiva, no nystagmus. EARS: Hearing grossly intact. Ear canals and tympanic membranes are within normal limits. MOUTH: Oropharynx within normal limits. NECK: Supple, trachea is midline, no adenopathy, no JVD, no carotid bruit, no c- spine tenderness, neck with full ROM. CHEST: Symmetric, no tenderness at palpation. LUNGS: Clear to auscultation bilaterally. No wheezing or crackles. CVS: Tachycardia ABDOMEN: Soft, non-tender. No signs of distention. No rebound, no guarding, and no masses palpated. Bowel sounds are normal. EXTREMITIES: FROM in all major joints, no edema, no cyanosis or clubbing. NEURO: Alert and oriented x 3. No acute neurological deficits. Speech is normal and follows commands. SKIN: Dry and warm. Triage Information Reviewed: Yes Vital Signs On Initial Exam: Initial Vitals Temp Pulse Resp BP Pulse Ox 98.8 F 170 20 147/87 98 07/01/19 19:43 07/01/19 19:43 07/01/19 19:43 07/01/19 19:43 07/01/19 19:43 Vital Signs Reviewed: Yes Procedures - Sedation Patient Received Moderate/Deep Sedation with Procedure: No Diagnostics - Vital Signs Vital Signs Temp Pulse Resp BP Pulse Ox 07/01/19 20:14 179 97 07/01/19 19:43 98.8 F 170 20 147/87 98 - Laboratory Lab Results: Lab Results 07/01/19 07/01/19 07/01/19 Range/Units 19:55 19:55 19:55 WBC 6.7 (3.5-10.8) 10^3/uL RBC 4.73 (3.70-4.87) 10^6 /uL Hgb 14.6 (12.0-16.0) g/dL Hct 42 (35-47) % MCV 89 (80-97) fL MCH 31 (27-31) pg MCHC 35 (31-36) g/dL RDW 13 (10-15) % Plt Count 184 (150-450) 10^3/uL MPV 9.0 (7.4-10.4) fL Neut % (Auto) 58.6 % Lymph % (Auto) 30.2 % Victoria % (Auto) 6.9 % Eos % (Auto) 3.2 % Baso % (Auto) 1.1 % Absolute Neuts (auto) 3.9 (1.5-7.7) 10^3/ul Absolute Lymphs (auto) 2.0 (1.0-4.8) 10^3/ul Absolute Monos (auto) 0.5 (0-0.8) 10^3/ul Absolute Eos (auto) 0.2 (0-0.6) 10^3/ul Absolute Basos (auto) 0.1 (0-0.2) 10^3/ul Absolute Nucleated RBC 0.0 10^3/ul Nucleated RBC % 0.1 Sodium 137 (135-145) mmol/L Potassium 3.2 L (3.5-5.0) mmol/L Chloride 103 (101-111) mmol/L Carbon Dioxide 26 (22-32) mmol/L Anion Gap 8 (2-11) mmol/L BUN 15 (6-24) mg/dL Creatinine 0.79 (0.51-0.95) mg/dL Est GFR ( Amer) 97.0 (>60) Est GFR (Non-Af Amer) 80.2 (>60) BUN/Creatinine Ratio 19.0 (8-20) Glucose 136 H (70-100) mg/dL Lactic Acid 1.3 (0.5-2.0) mmol/L Calcium 9.6 (8.6-10.3) mg/dL Magnesium 2.0 (1.9-2.7) mg/dL Total Bilirubin 0.40 (0.2-1.0) mg/dL AST 20 (13-39) U/L ALT 20 (7-52) U/L Alkaline Phosphatase 72 (34-104) U/L Total Creatine Kinase 76 (10-223) U/L CK-MB (CK-2) 1.2 (0.6-6.3) ng/mL Troponin I 0.00 (<0.03) ng/mL B-Natriuretic Peptide (<=100) pg/mL Total Protein 8.4 (6.4-8.9) g/dL Albumin 4.9 (3.2-5.2) g/dL Globulin 3.5 (2-4) g/dL Albumin/Globulin Ratio 1.4 (1-3) TSH Pending Beta HCG, Quant < 0.60 mIU/mL 07/01/19 Range/Units 19:55 WBC (3.5-10.8) 10^3/uL RBC (3.70-4.87) 10^6 /uL Hgb (12.0-16.0) g/dL Hct (35-47) % MCV (80-97) fL MCH (27-31) pg MCHC (31-36) g/dL RDW (10-15) % Plt Count (150-450) 10^3/uL MPV (7.4-10.4) fL Neut % (Auto) % Lymph % (Auto) % Victoria % (Auto) % Eos % (Auto) % Baso % (Auto) % Absolute Neuts (auto) (1.5-7.7) 10^3/ul Absolute Lymphs (auto) (1.0-4.8) 10^3/ul Absolute Monos (auto) (0-0.8) 10^3/ul Absolute Eos (auto) (0-0.6) 10^3/ul Absolute Basos (auto) (0-0.2) 10^3/ul Absolute Nucleated RBC 10^3/ul Nucleated RBC % Sodium (135-145) mmol/L Potassium (3.5-5.0) mmol/L Chloride (101-111) mmol/L Carbon Dioxide (22-32) mmol/L Anion Gap (2-11) mmol/L BUN (6-24) mg/dL Creatinine (0.51-0.95) mg/dL Est GFR ( Amer) (>60) Est GFR (Non-Af Amer) (>60) BUN/Creatinine Ratio (8-20) Glucose (70-100) mg/dL Lactic Acid (0.5-2.0) mmol/L Calcium (8.6-10.3) mg/dL Magnesium (1.9-2.7) mg/dL Total Bilirubin (0.2-1.0) mg/dL AST (13-39) U/L ALT (7-52) U/L Alkaline Phosphatase (34-104) U/L Total Creatine Kinase (10-223) U/L CK-MB (CK-2) (0.6-6.3) ng/mL Troponin I (<0.03) ng/mL B-Natriuretic Peptide 76 (<=100) pg/mL Total Protein (6.4-8.9) g/dL Albumin (3.2-5.2) g/dL Globulin (2-4) g/dL Albumin/Globulin Ratio (1-3) TSH Beta HCG, Quant mIU/mL Result Diagrams: 07/01/19 19:55 07/01/19 19:55 Lab Statement: Any lab studies that have been ordered have been reviewed, and results considered in the medical decision making process. - EKG 1947 Cardiac Rate: Tachycardia EKG Rhythm: SVT Summary of EKG Findings: EKG at 1947 reveals SVT, a rate of 179 bpm, and no ST elevations. has interpreted and reviewed this EKG. 2006 Cardiac Rate: NL EKG Rhythm: Sinus Rhythm Summary of EKG Findings: A second EKG at 2006 reveals sinus rhythm, a rate of 97 bpm, and no ST elevations. has reviewd and interpreted this EKG. Complex Multi-Symp Course/Dx Assessment/Plan: 43 year old F presenting to [facility] with a Hx of SVT accompanied by female companions complains of palpitations. Patient reports tachycardia, dehydration, low potassium, SOB, and dizziness. Pt reports no current use of beta blockers. Pt was scheduled to get a uterine ablation but it has since been postponed for cardiac clearance. SHx of two C-sections. FHx of HTN, hypercholesterolemia, and diabetes. SocHx of smoking in the past. The patient rates the pain 0/10 in severity. Symptoms aggravated by nothing. Symptoms alleviated by nothing. In the ED course the patient was placed in a campus monitor, IV access was obtained, IV fluids started. EKG at 1947 reveals SVT, a rate of 179 bpm, and no ST elevations. A second EKG at 2006 reveals sinus rhythm, a rate of 97 bpm, and no ST elevations. Valsalva maneuvers were performed, no improvement of symptoms. The patient was given 6 mg of adenosine and her symptoms did not improve. The patient was given 12 mg of adenosine and the patient combative into a normal sinus rhythm. The patients was also given a 40 meq potassium chloride tablet and Ns. Blood test w/o a significant abnormality except for potassium level of 3.2, glucose is 136. The troponin is 0.00 and also the magnesium was 2.0. PE findings: tachycardia. Therefore the patient is feeling better and she does not have the symptoms. And she will be discharged home with follow-up with the primary care physician as well as Dr. Hendrickson. The patient is hemodynamically stable alert and oriented 3. - Diagnoses Provider Diagnoses: SVT (supraventricular tachycardia) Discharge ED - Sign-Out/Discharge Documenting (check all that apply): Patient Departure - discharge - Discharge Plan Condition: Stable Disposition: HOME Patient Education Materials: Supraventricular Tachycardia (ED) Referrals: Nils Arrington DO [Primary Care Provider] - Additional Instructions: FOLLOW UP WITH YOUR PRIMARY CARE PROVIDER WITHIN ONE WEEK. RETURN TO THE ED FOR ANY WORSENING OR NEW SYMPTOMS. - Billing Disposition and Condition Condition: STABLE Disposition: Home - Attestation Statements Document Initiated by Alison: Yes Documenting Scribe: Onel Causey Provider For Whom Alison is Documenting (Include Credential): Dr.Walter Omar MD Scribe Attestation: Onel Sarmiento scribed for Dr.Walter Omar MD on 07/03/19 at 2030. Scribe Documentation Reviewed: Yes Provider Attestation: The documentation as recorded by the Onel fabian accurately reflects the service I personally performed and the decisions made by me, Dr.Walter Omar MD Status of Scribe Document: Viewed
[2019-07-01 20:50] LABS: TSH (Thyroid Stimulating Horm) 4.55 mcIU/mL (0.34-5.60)
[2019-07-01] MEDS: Potassium Chlor TAB* 20 MEQ TAB.ER PO ONE ×2 (21:43→22:10)
[2019-07-01] MEDS ORDERED: Potassium Chloride* LIQUID 20 MEQ/15 ML UDC PO ONE (22:00)
[2019-07-01 22:05] VITALS: BP 128/62
== END 2019-07-01 22:04 | disposition home or self-care (01) ==
LOC: ED 19:41
DX: I47.1 Supraventricular tachycardia (principal); R42 Dizziness and giddiness; R06.02 Shortness of breath; R00.2 Palpitations; Z88.6 Allergy status to analgesic agent; F17.210 Nicotine dependence, cigarettes, uncomplicated; R94.31 Abnormal electrocardiogram [ECG] [EKG]
CPT/HCPCS: 36415; 80053; 82550; 82553; 83605; 83735; 83880; 84443; 84484; 84702; 85025; 93005; 96374; 99284; A9270-GY; J0153